=== PATIENT | male | born 1990 | race Caucasian/White ===

== ENCOUNTER → 2021-04-05 | Outpatient (CLI) | payer OTHER ==
[~2021-04-05] MED LIST: GASTROGRAFIN SOLUTION 30ML (Q9963) As Ordered ONE; ISOVUE-370 76% 100ML VIAL As Ordered ONE
--- NOTE | 2021-04-05 18:45 | REP ---
INDICATION: ABN WEIGHT GAIN, ELEVATED BP. COMPARISON: None. TECHNIQUE: The abdomen, not including the pelvis, as initially scanned with bowel contrast but without IV contrast. This is followed by scanning of the abdomen and pelvis with IV and bowel contrast. FINDINGS: The visualized lung [place] are unremarkable. There is diffuse hepato steatosis. There are no hepatic masses. The gallbladder, pancreas and spleen are unremarkable. The adrenals and kidneys are unremarkable. The abdominal aorta is unremarkable. There is no periaortic adenopathy or mass. There is no bowel distention or obstruction. There is focal wall thinning for short-segment of the proximal descending colon, nonspecific, peristalsis artifact versus inflammatory versus infectious colitis. Pelvis: The appendix is not identified, however there is no pericecal inflammation or abscess. The terminal ileum is unremarkable. There is no ascites or adenopathy. The bladder is unremarkable. IMPRESSION: Hepato steatosis. There are no hepatic masses. There is no ascites or adenopathy. There are no abdominal or pelvic masses otherwise. No adrenal mass. Small focal segment of peristalsis artifact versus inflammatory versus infectious colitis in the proximal descending colon. Otherwise, essentially negative abdomen/pelvis CT. <Electronically signed by Nolan Vu > 04/05/21 [id number]
== END ==
LOC: M RAD 03-28 11:39
PROVIDERS: ATTEND Nurse Practitioner
DX: R63.5 Abnormal weight gain (principal); R03.0 Elevated blood-pressure reading, without diagnosis of hypertension; R94.5 Abnormal results of liver function studies; K76.0 Fatty (change of) liver, not elsewhere classified
CPT/HCPCS: 74178; Q9963; Q9967